=== PATIENT | female | born 1965 | race Caucasian/White ===

== ENCOUNTER 2024-08-21 06:47 | Day surgery (SDC) | payer OTHER ==
[2024-08-20 11:46] VITALS: BMI 30.7
[2024-08-21 12:25] VITALS: TEMP 97.2
[2024-08-21 12:57] VITALS: BP 131/75; PULSE 68; RESP 15
== END 2024-08-21 12:55 | disposition home or self-care (01) ==
LOC: JASU-ENDO 06:47
PROVIDERS: ATTEND Internal Medicine Gastroenterology
PROC: 0DB68ZX Excision of Stomach, Via Natural or Artificial Opening Endoscopic, Diagnostic (ICD-10-PCS; 2024-08-21)
PROC: 0DB78ZX Excision of Stomach, Pylorus, Via Natural or Artificial Opening Endoscopic, Diagnostic (ICD-10-PCS; 2024-08-21)
PROC: 0DB68ZX Excision of Stomach, Via Natural or Artificial Opening Endoscopic, Diagnostic (ICD-10-PCS; principal; 2024-08-21 11:00)
DX: K31.7 Polyp of stomach and duodenum (principal); K21.9 Gastro-esophageal reflux disease without esophagitis; I10 Essential (primary) hypertension
CPT/HCPCS: 88305-TC; 88342-TC